=== PATIENT | female | born 1940 | race Asian ===

== ENCOUNTER 2017-11-15 12:10 | Emergency (ER) | payer MEDICARE, OTHER ==
[~2017-11-15] VITALS: Ht 152.4 cm; Wt 59.0 kg
[~2017-11-15 12:10] MED LIST: AMLODIPINE BESYL5 M1 PO; CLONIDINE HCL0.1 MG PO; COZAAR50 MG PO; CRESTOR5 M1 PO; LAC PO; LEVOFLOXACIN500 M1 PO; METFORMIN HCL500 MG PO; PROTONIX20 MG PO; TOPROL XL25 MG PO
[2017-11-15 12:49] VITALS: Ht 152.4 cm; Wt 59.0 kg
[2017-11-15 14:56] LABS: BASOPHIL % 0.2 % (0-2); PLATELET COUNT 248 x10^3mcL (130-400)
[2017-11-15 15:03] LABS: CALCIUM 9.5 mg/dL (8.5-10.1); CARBON DIOXIDE 24.2 mmol/L (21-32); CHLORIDE SERUM 102 mmol/L (98-107); CREATININE SERUM 1.5 mg/dL (0.6-1.0); GLUCOSE SERUM 138 mg/dL (74-106); SODIUM SERUM 138 mmol/L (136-145)
[2017-11-15 15:08] LABS: ALBUMIN 4.3 g/dL (3.4-5.0); ALKALINE PHOSPHATASE 60 U/L (46-116); ALT/SGPT 16 U/L (14-59); AST/SGOT 13 U/L (15-37); BILIRUBIN TOTAL 0.5 mg/dL (0.20-1.00)
[2017-11-15 15:11] LABS: TOTAL PROTEIN, SERUM 8.5 g/dL (6.4-8.2)
[2017-11-15 15:18] LABS: FREE T4 1.15 ng/dL (0.76-1.46); FREE THYROXINE INDEX 3.4 ug/dL (1.4-4.5); T4(THYROXINE) 9.8 ug/dL (4.7-13.3)
[2017-11-15 15:28] LABS: T3 TOTAL 0.87 ng/mL
[2017-11-15 15:46] VITALS: BP 131/64
== END 2017-11-15 15:46 | disposition home or self-care (01) ==
LOC: ED 12:10
PROVIDERS: Emergency Medicine
DX: N39.0 Urinary tract infection, site not specified (principal); R53.1 Weakness; I10 Essential (primary) hypertension; I12.9 Hypertensive chronic kidney disease with stage 1 through stage 4 chronic kidney disease, or unspecified chronic kidney disease; E11.22 Type 2 diabetes mellitus with diabetic chronic kidney disease; N18.9 Chronic kidney disease, unspecified; Z88.8 Allergy status to other drugs, medicaments and biological substances
CPT/HCPCS: 36415; 84439; Q0092

== ENCOUNTER 2018-04-27 12:53 | Emergency (ER) | payer MEDICARE, OTHER ==
[~2018-04-27] VITALS: Ht 147.3 cm; Wt 59.0 kg
[2018-04-27 13:14] VITALS: Ht 147.3 cm; Wt 59.0 kg
[2018-04-27 14:27] VITALS: BP 153/70
[2018-04-27 14:34] LABS: CALCIUM 9.4 mg/dL (8.5-10.1); CARBON DIOXIDE 23.2 mmol/L (21-32); CHLORIDE SERUM 103 mmol/L (98-107); CREATININE SERUM 1.4 mg/dL (0.6-1.0); GLUCOSE SERUM 120 mg/dL (74-106); POTASSIUM SERUM 4.9 mmol/L (3.5-5.1); SODIUM SERUM 135 mmol/L (136-145)
[2018-04-27 14:36] LABS: PLATELET COUNT 147 x10^3mcL (130-400)
[2018-04-27 14:38] LABS: BASOPHIL % 0.7 % (0-2); RED CELL DISTRIBUTION WIDTH 13.9 % (11.5-14.5)
[2018-04-27 14:39] LABS: ALBUMIN 3.7 g/dL (3.4-5.0); ALKALINE PHOSPHATASE 91 U/L (46-116); ALT/SGPT 29 U/L (14-59); AST/SGOT 27 U/L (15-37); BILIRUBIN TOTAL 0.4 mg/dL (0.20-1.00); TOTAL PROTEIN, SERUM 7.8 g/dL (6.4-8.2)
[2018-04-27 15:05] LABS: UA SPECIFIC GRAVITY <=1.005 (1.005-1.035); microscopic required? YES; urine erythrocyte TRACE (NEGATIVE)
== END 2018-04-27 15:31 | disposition home or self-care (01) ==
LOC: ED 12:53
PROVIDERS: Emergency Medicine
DX: H61.22 Impacted cerumen, left ear (principal); N28.9 Disorder of kidney and ureter, unspecified; M54.9 Dorsalgia, unspecified
CPT/HCPCS: 36415

== ENCOUNTER 2020-03-05 07:46 | Inpatient (IN) | payer OTHER, MEDICARE ==
[~2020-03-05] VITALS: Ht 152.4 cm; Wt 58.5 kg
[2020-03-05 07:51] VITALS: Ht 152.4 cm; Wt 58.5 kg
[2020-03-05 14:31] LABS: BASOPHIL % 0.3 % (0.2-1.3); PLATELET COUNT 232 x10^3mcL (179-408); RED CELL DISTRIBUTION WIDTH 14.3 % (12.3-17.7)
[2020-03-05 14:51] LABS: UA SPECIFIC GRAVITY 1.025 (1.005-1.035); microscopic required? YES; urine erythrocyte 2+ (NEGATIVE)
[2020-03-05 14:54] LABS: ALBUMIN 3.5 g/dL (3.4-5.0); ALKALINE PHOSPHATASE 59 U/L (46-116); ALT/SGPT 38 U/L (14-59); AST/SGOT 66 U/L (15-37); BILIRUBIN TOTAL 0.49 mg/dL (0.20-1.00); C REACTIVE PROTEIN 3.6 mg/dL (<=0.9); CALCIUM 8.6 mg/dL (8.5-10.1); CARBON DIOXIDE 16.2 mmol/L (21-32); CHLORIDE SERUM 104 mmol/L (98-107); CREATININE SERUM 3.7 mg/dL (0.6-1.0); GLUCOSE SERUM 136 mg/dL (74-106); POTASSIUM SERUM 3.7 mmol/L (3.5-5.1); SODIUM SERUM 141 mmol/L (136-145); TOTAL PROTEIN, SERUM 7.9 g/dL (6.4-8.2)
[2020-03-05 15:01] LABS: LACTIC DEHYDROGENASE (LDH) 632 U/L (100-190)
[2020-03-06 11:21] LABS: BASOPHIL % 0.1 % (0.2-1.3); PLATELET COUNT 220 x10^3mcL (179-408); RED CELL DISTRIBUTION WIDTH 14.5 % (12.3-17.7)
[2020-03-06 12:00] LABS: ALKALINE PHOSPHATASE 63 U/L (46-116); ALT/SGPT 37 U/L (14-59); AST/SGOT 76 U/L (15-37); BILIRUBIN TOTAL 0.45 mg/dL (0.20-1.00); CALCIUM 8.4 mg/dL (8.5-10.1); CARBON DIOXIDE 18.9 mmol/L (21-32); CHLORIDE SERUM 109 mmol/L (98-107); CREATININE SERUM 3.5 mg/dL (0.6-1.0); GLUCOSE SERUM 187 mg/dL (74-106); POTASSIUM SERUM 3.4 mmol/L (3.5-5.1); SODIUM SERUM 146 mmol/L (136-145); TOTAL PROTEIN, SERUM 7.5 g/dL (6.4-8.2)
[2020-03-06 12:07] LABS: ALBUMIN 3.1 g/dL (3.4-5.0)
[2020-03-06 14:51] VITALS: BP 178/78
[2020-03-06 20:20] VITALS: BP 96/54
[2020-03-07 04:32] VITALS: BP 160/88
[2020-03-07 05:30] VITALS: BP 169/95
[2020-03-07 10:02] VITALS: BP 146/89
[2020-03-07 13:43] VITALS: BP 134/62
[2020-03-07 13:52] LABS: ALKALINE PHOSPHATASE 71 U/L (46-116); ALT/SGPT 43 U/L (14-59); AST/SGOT 111 U/L (15-37); BILIRUBIN TOTAL 0.7 mg/dL (0.20-1.00); CALCIUM 8.5 mg/dL (8.5-10.1); CARBON DIOXIDE 16.4 mmol/L (21-32); CHLORIDE SERUM 110 mmol/L (98-107); CREATININE SERUM 3.3 mg/dL (0.6-1.0); GLUCOSE SERUM 159 mg/dL (74-106); POTASSIUM SERUM 3.2 mmol/L (3.5-5.1); SODIUM SERUM 151 mmol/L (136-145); TOTAL PROTEIN, SERUM 7.8 g/dL (6.4-8.2)
[2020-03-07 13:58] LABS: ALBUMIN 3.1 g/dL (3.4-5.0)
[2020-03-07 14:02] LABS: BASOPHIL % 0.8 % (0.2-1.3); PLATELET COUNT 268 x10^3mcL (179-408)
[2020-03-07 14:18] LABS: RED CELL DISTRIBUTION WIDTH 14.7 % (12.3-17.7)
[2020-03-07 17:30] VITALS: BP 105/61
[2020-03-07 21:50] VITALS: BP 119/74
[2020-03-08 05:30] VITALS: BP 118/61
[2020-03-08 05:32] LABS: BASOPHIL % 0.3 % (0.2-1.3); PLATELET COUNT 217 x10^3mcL (179-408); RED CELL DISTRIBUTION WIDTH 14.9 % (12.3-17.7)
[2020-03-08 05:40] LABS: ALKALINE PHOSPHATASE 75 U/L (46-116); ALT/SGPT 45 U/L (14-59); AST/SGOT 92 U/L (15-37); BILIRUBIN TOTAL 0.6 mg/dL (0.20-1.00); CALCIUM 8.5 mg/dL (8.5-10.1); CARBON DIOXIDE 17.2 mmol/L (21-32); CHLORIDE SERUM 114 mmol/L (98-107); GLUCOSE SERUM 236 mg/dL (74-106); POTASSIUM SERUM 4.2 mmol/L (3.5-5.1); SODIUM SERUM 148 mmol/L (136-145); TOTAL PROTEIN, SERUM 7.4 g/dL (6.4-8.2)
[2020-03-08 06:04] LABS: ALBUMIN 3.1 g/dL (3.4-5.0); CREATININE SERUM 4.3 mg/dL (0.6-1.0)
[2020-03-08 09:19] VITALS: BP 109/62
[2020-03-08 11:34] VITALS: BP 144/87
[2020-03-08 11:42] LABS: MAGNESIUM 3.4 mg/dL (1.8-2.4)
[2020-03-08 13:31] VITALS: BP 151/93
[2020-03-08 17:02] VITALS: BP 143/87
[2020-03-08 22:18] VITALS: BP 159/84
[2020-03-09 06:09] VITALS: BP 152/70
[2020-03-09 08:52] LABS: PLATELET COUNT 219 x10^3mcL (179-408)
[2020-03-09 09:04] VITALS: BP 144/66
[2020-03-09 10:04] LABS: ALBUMIN 3.4 g/dL (3.4-5.0); ALKALINE PHOSPHATASE 89 U/L (46-116); ALT/SGPT 65 U/L (14-59); AST/SGOT 98 U/L (15-37); BILIRUBIN TOTAL 0.59 mg/dL (0.20-1.00); CALCIUM 8.5 mg/dL (8.5-10.1); CARBON DIOXIDE 14.1 mmol/L (21-32); CHLORIDE SERUM 118 mmol/L (98-107); GLUCOSE SERUM 205 mg/dL (74-106); POTASSIUM SERUM 5.3 mmol/L (3.5-5.1); TOTAL PROTEIN, SERUM 7.9 g/dL (6.4-8.2)
[2020-03-09 10:09] LABS: CREATININE SERUM 4.6 mg/dL (0.6-1.0); SODIUM SERUM 159 mmol/L (136-145)
[2020-03-09 10:33] LABS: RED CELL DISTRIBUTION WIDTH 15.5 % (12.3-17.7)
[2020-03-09 12:32] VITALS: BP 131/86
[2020-03-09 15:08] LABS: BAND NEUTROPHIL 4 % (0-10); MONOCYTE 3 % (0-7); PLATELET MORPHOLOGY LARGE PLATELET SEEN; SEGMENTED NEUTROPHILS 90 % (37-75); rbc morphology (normal/abnorm) NORMAL (NORMAL)
[2020-03-09 18:20] VITALS: BP 149/81
[2020-03-09 20:41] VITALS: BP 132/85
[2020-03-10 08:55] LABS: PLATELET COUNT 119 x10^3mcL (179-408); RED CELL DISTRIBUTION WIDTH 15.7 % (12.3-17.7)
[2020-03-10 09:16] LABS: ALKALINE PHOSPHATASE 82 U/L (46-116); ALT/SGPT 63 U/L (14-59); AST/SGOT 70 U/L (15-37); BILIRUBIN TOTAL 0.81 mg/dL (0.20-1.00); CARBON DIOXIDE 23.2 mmol/L (21-32); CHLORIDE SERUM 121 mmol/L (98-107); CREATININE SERUM 3.7 mg/dL (0.6-1.0); GLUCOSE SERUM 334 mg/dL (74-106); MAGNESIUM 3.8 mg/dL (1.8-2.4); POTASSIUM SERUM 4.6 mmol/L (3.5-5.1); TOTAL PROTEIN, SERUM 6.8 g/dL (6.4-8.2)
[2020-03-10 10:19] VITALS: BP 156/19
[2020-03-10 11:04] LABS: SODIUM SERUM 162 mmol/L (136-145)
[2020-03-10 13:55] VITALS: BP 135/69
[2020-03-10 13:55] LABS: BAND NEUTROPHIL 2 % (0-10); MONOCYTE 5 % (0-7); SEGMENTED NEUTROPHILS 90 % (37-75)
[2020-03-10 13:56] LABS: PLATELET MORPHOLOGY PLATELETS DECREASED; rbc morphology (normal/abnorm) NORMAL (NORMAL)
[2020-03-10 19:13] VITALS: BP 124/50
[2020-03-10 23:21] VITALS: BP 139/55
[2020-03-11 05:45] VITALS: BP 110/49
[2020-03-11 08:15] LABS: BASOPHIL % 0.9 % (0.2-1.3)
[2020-03-11 08:24] LABS: PLATELET COUNT 68 x10^3mcL (179-408); RED CELL DISTRIBUTION WIDTH 16.2 % (12.3-17.7)
[2020-03-11 09:08] VITALS: BP 144/55
[2020-03-11 09:22] LABS: CALCIUM 7.2 mg/dL (8.5-10.1); CARBON DIOXIDE 24.2 mmol/L (21-32); CHLORIDE SERUM 107 mmol/L (98-107); GLUCOSE SERUM 411 mg/dL (74-106); MAGNESIUM 3.3 mg/dL (1.8-2.4); POTASSIUM SERUM 5.3 mmol/L (3.5-5.1); SODIUM SERUM 144 mmol/L (136-145)
[2020-03-11 09:36] LABS: CREATININE SERUM 4.3 mg/dL (0.6-1.0)
[2020-03-11 12:57] VITALS: BP 115/47
[2020-03-11 17:14] VITALS: BP 115/41
[2020-03-11 20:52] VITALS: BP 110/47
[2020-03-12 05:25] VITALS: BP 77/30
== END 2020-03-12 05:52 | DRG 137 ==
LOC: ED 07:46 → DU 15:25
PROVIDERS: Emergency Medicine; Internal Medicine Nephrology; ADMIT Hospitalist; ATTEND Hospitalist
PROC: XW13325 Transfusion of Convalescent Plasma (Nonautologous) into Peripheral Vein, Percutaneous Approach, New Technology Group 5 (ICD-10-PCS; principal; 2020-03-05)
DX: U07.1 COVID-19 (principal); I21.4 Non-ST elevation (NSTEMI) myocardial infarction; J12.82 Pneumonia due to coronavirus disease 2019; J96.01 Acute respiratory failure with hypoxia; N17.9 Acute kidney failure, unspecified; E11.22 Type 2 diabetes mellitus with diabetic chronic kidney disease; D68.59 Other primary thrombophilia; Z66 Do not resuscitate; Z88.8 Allergy status to other drugs, medicaments and biological substances; Z86.73 Personal history of transient ischemic attack (TIA), and cerebral infarction without residual deficits; Z90.710 Acquired absence of both cervix and uterus; E78.5 Hyperlipidemia, unspecified; I12.9 Hypertensive chronic kidney disease with stage 1 through stage 4 chronic kidney disease, or unspecified chronic kidney disease; N18.9 Chronic kidney disease, unspecified; E87.0 Hyperosmolality and hypernatremia; E87.5 Hyperkalemia
CPT/HCPCS: 36600; 82962; 83880; 85378; 87804; 90658; 90732; 92526-GN; 92610-GN; G0378; J0456; J0696; J1100; J1644; J2060; J2270; J2543; J2765; J3480; J3490; J3535; J7042; J7050; J7070; J7626; U0003